=== PATIENT | male | born 1985 | race Caucasian/White ===

== ENCOUNTER 2018-02-15 18:37 | Emergency (ER) | payer OTHER ==
[2018-02-15] MEDS ORDERED: ACETAMINOPHEN TAB 325 MG TAB PO STA (19:09)
[2018-02-15] MEDS ORDERED: IBUPROFEN 600 MG TAB PO STA (19:09)
--- NOTE | 2018-02-15 19:14 | ED ---
Fever HPI - General Chief Complaint: Fever Stated Complaint: fever, chills Time Seen by Provider: 02/15/18 18:58 Source: patient, RN notes reviewed Mode of arrival: ambulatory Limitations: no limitations - History of Present Illness Initial Comments: This is a 32-year-old male who presents to the emergency department with chief complaint of fever. Patient states that on Monday he worked a 24-hour shift. He states that at the end of the shift he started to feel ill. He states that when he returned home yesterday he developed all over body aches. He states that he developed a fever and chills. He states he has been treating his fevers with Tylenol and Motrin. He states his last dose was at noon today. He also reports a pressure headache that worsens with bending forward. He denies any cough, runny nose, ear pain, sore throat, abdominal pain, nausea or vomiting , diarrhea or constipation. He denies any dysuria or hematuria. States that he is generally healthy and has had no sick contacts. Denies any recent travel. He states that a week and a half ago he was diagnosed with a dental abscess after having months of right maxillary sinus pain; he was treated with antibiotics and did follow-up with a dental specialist. He states that since that time the pain in his sinuses has improved. - Related Data Home Medications Medication Instructions Recorded Confirmed Acetaminophen [Tylenol] 650 mg PO Q6H PRN 02/15/18 02/15/18 Ibuprofen [Motrin Ib] 600 mg PO Q6H PRN 02/15/18 02/15/18 Allergies Allergy/AdvReac Type Severity Reaction Status Date / Time carbinoxamine [From Rondec] Allergy Unknown Verified 02/15/18 18:54 Childhood pseudoephedrine [From Rondec] Allergy Unknown Verified 02/15/18 18:54 Childhood Review of Systems ROS Statement: Those systems with pertinent positive or pertinent negative responses have been documented in the HPI. ROS Other: All systems not noted in ROS Statement are negative. Past Medical History Past Medical History: No Reported History History of Any Multi-Drug Resistant Organisms: None Reported Past Surgical History: No Surgical Hx Reported Past Psychological History: No Psychological Hx Reported Smoking Status: Current every day smoker Past Alcohol Use History: None Reported Past Drug Use History: None Reported General Exam - General Exam Comments Initial Comments: General: Awake and alert, well-developed; in no apparent distress. HEENT: Head atraumatic, normocephalic. Pupils are equal, round and reactive to light. Extraocular movements intact. Oropharynx moist without erythema or exudate. Bilateral TMs pearly without effusion. No tenderness on palpation of maxillary sinuses. Neck: Supple. Normal ROM. Cardiovascular: Regular rate and rhythm. No murmurs, rubs or gallops. Chest symmetrical. Respiratory: Lungs clear to auscultation bilaterally. No wheezes, rales or rhonchi. Normal respiratory effort with no use of accessory muscles. Musculoskeletal: Normal ROM, no tenderness bilateral upper and lower extremities. Ambulating normally. Skin: [place], warm and dry without rashes or lesions. Neurological: Alert and oriented x3. CN II-XII grossly intact. Speech is fluent and answers are appropriate. No focal neuro deficits. Psychiatric: Normal mood and affect. No overt signs of depression or anxiety noted. Limitations: no limitations Course Vital Signs 02/15/18 02/15/18 18:48 21:04 Temperature 100.9 F H 102.0 F H Pulse Rate 104 H 97 Respiratory 20 16 Rate Blood Pressure 139/67 130/72 O2 Sat by Pulse 99 98 Oximetry Medical Decision Making - Medical Decision Making This is a 32-year-old male who presents to emergency department with chief complaint of fever. Patient reports body aches, fever and a headache since yesterday. Has no other complaints. Denies cough, sore throat, ear pain, abdominal pain, nausea or vomiting. He states that he has been working long hours and feels rundown. Given ibuprofen and Tylenol here in the emergency department. Influenza swab was negative. Recommended rest and alternating Motrin and Tylenol to treat fevers. Recommended following up with primary care provider. Return parameters were discussed. Patient is in no acute distress and will be discharged home at this time. He is in agreement and voices understanding. All questions were answered. - Lab Data Lab Results 02/15/18 Range/Units 19:35 Influenza Type A RNA Not Detected (Not Detectd) Influenza Type B (PCR) Not Detected (Not Detectd) Disposition Clinical Impression: Fever Disposition: HOME SELF-CARE Condition: Good Instructions: Fever in Adults (ED) Additional Instructions: Please follow up with primary care provider within 1-2 days. Return to emergency department if symptoms should worsen or any concerns arise. Is patient prescribed a controlled substance at d/c from ED?: No Referrals: Sindy White MD [Primary Care Provider] - 1-2 days Time of Disposition: 20:45
[2018-02-15 21:06] VITALS: BP 130/72; PULSE 97; RESP 16; TEMP 102
== END 2018-02-15 21:05 | disposition home or self-care (01) ==
LOC: EC 18:37
DX: R50.9 Fever, unspecified (principal); R51 Headache; M79.1 Myalgia; F17.200 Nicotine dependence, unspecified, uncomplicated; Z88.8 Allergy status to other drugs, medicaments and biological substances
CPT/HCPCS: 87502; 99283

== ENCOUNTER 2018-02-16 17:52 | Inpatient (IN) | payer OTHER ==
[2018-02-16] MEDS ORDERED: SODIUM CHLORIDE 0.9% 1,000 ML IV STA (18:20)
[2018-02-16] MEDS ORDERED: ACETAMINOPHEN TAB 325 MG TAB PO STA (18:20)
--- NOTE | 2018-02-16 18:23 | ED ---
Fever HPI <Mateo Lyon - Last Filed: 02/16/18 19:50> - General Source: patient, RN notes reviewed Mode of arrival: ambulatory Limitations: no limitations <Christina Jaimes - Last Filed: 02/16/18 20:19> - General Chief Complaint: Fever Stated Complaint: sob, fever, dizziness Time Seen by Provider: 02/16/18 18:15 - History of Present Illness Initial Comments: This is a 32-year-old male who presents to the emergency department with chief complaint of fever. Patient was seen by myself yesterday in the emergency department with chief complaint of fever, headache and body aches. Fever was treated and influenza swab was negative. Patient was discharged home in stable condition. He states that he went to bed and slept all day. He states that sometime throughout the day he developed a cough, shortness of breath and dizziness. He has not eaten or drank anything throughout the day. He states that his urine is concentrated. He reports that a fever of 105 prior to arrival. He states that he took 600 mg of ibuprofen in 325 mg of Tylenol at 1700. He denies sore throat, ear pain, abdominal pain, nausea or vomiting, diarrhea or constipation. He does report continuation of body aches. (Christina Jaimes) - Related Data Home Medications Medication Instructions Recorded Confirmed Acetaminophen [Tylenol] 650 mg PO Q6H PRN 02/15/18 02/16/18 Ibuprofen [Motrin Ib] 600 mg PO Q6H PRN 02/15/18 02/16/18 Allergies Allergy/AdvReac Type Severity Reaction Status Date / Time carbinoxamine [From Rondec] Allergy Unknown Verified 02/16/18 18:41 Childhood pseudoephedrine [From Rondec] Allergy Unknown Verified 02/16/18 18:41 Childhood Review of Systems ROS Other: All systems not noted in ROS Statement are negative. <Mateo Lyon - Last Filed: 02/16/18 19:50> ROS Other: All systems not noted in ROS Statement are negative. <Christina Jaimes - Last Filed: 02/16/18 20:19> ROS Statement: Those systems with pertinent positive or pertinent negative responses have been documented in the HPI. Past Medical History Past Medical History: No Reported History History of Any Multi-Drug Resistant Organisms: None Reported Past Surgical History: No Surgical Hx Reported Past Psychological History: No Psychological Hx Reported Smoking Status: Current every day smoker Past Alcohol Use History: None Reported Past Drug Use History: None Reported <Christina Jaimes - Last Filed: 02/16/18 20:19> General Exam <Mateo Lyon - Last Filed: 02/16/18 19:50> Limitations: no limitations <Christina Jaimes - Last Filed: 02/16/18 20:19> - General Exam Comments Initial Comments: General: Awake and alert, well-developed; in no apparent distress. Patient is diaphoretic. Mother is at bedside. HEENT: Head atraumatic, normocephalic. Pupils are equal, round and reactive to light. Extraocular movements intact. Oropharynx moist without erythema or exudate. Neck: Supple. Normal ROM. Cardiovascular: Regular rate and rhythm. No murmurs, rubs or gallops. Chest symmetrical. Respiratory: Crackles left lung base. Diminished breath sounds right lung. Normal respiratory effort with no use of accessory muscles. Abdomen: Soft, non-tender, non-distended. No rigidity, rebound or guarding. Normal bowel sounds in all 4 quadrants. Musculoskeletal: Normal ROM, no tenderness bilateral upper and lower extremities. Skin: [place], warm and dry without rashes or lesions. Neurological: Alert and oriented x3. CN II-XII grossly intact. Speech is fluent and answers are appropriate. No focal neuro deficits. Psychiatric: Normal mood and affect. No overt signs of depression or anxiety noted. (Christina Jaimes) Course <Mateo Lyon - Last Filed: 02/16/18 19:50> <Christina Jaimes - Last Filed: 02/16/18 20:19> Vital Signs 02/16/18 18:11 Temperature 99.7 F H Pulse Rate 96 Respiratory 20 Rate Blood Pressure 108/58 O2 Sat by Pulse 96 Oximetry - Reevaluation(s) Reevaluation #1: 02/16/18 19:51 Patient reevaluated by myself, Dr. Lyon. Patient is resting comfortably in bed. Lungs with rhonchi. Patient and family are updated on results and plan. Case was discussed in detail with Dr. Levy, who will admit for Dr. White. I reviewed and agree with PA findings. This includes all diagnostic interpretations and treatment plan. I did review x-ray. (Mateo Lyon) At this time, patient meets sepsis criteria. Confirmation of infection on chest x-ray indicates bilateral pneumonia. Patient will be started on azithromycin and Rocephin. Blood cultures are pending. 02/16/18 19:36 (Christina Jaimes) Medical Decision Making - Lab Data Result diagrams: 02/16/18 18:26 02/16/18 18:26 <Mateo Lyon - Last Filed: 02/16/18 19:50> - Lab Data Result diagrams: 02/16/18 18:26 02/16/18 18:26 - Radiology Data Radiology results: report reviewed, image reviewed <Christina Jaimes - Last Filed: 02/16/18 20:19> - Medical Decision Making This is a 32-year-old male who presents to the emergency department with chief complaint of fever. Patient reports bodyaches, shortness of breath, dizziness and cough. He is diaphoretic and febrile on presentation. He is 96% on room air. CBC reveals a white count at 19.0 with a left shift at 16.6. Lactic acid is normal at 1.1. Chest x-ray shows evidence for bilateral pneumonia. Patient meets sepsis criteria. Started on Rocephin and azithromycin. Discussed admission with patient who is in agreement. Patient will be admitted to Dr. Acevedo. He is in no acute distress at this time. (Christina Jaimes) - Lab Data Lab Results 02/16/18 02/16/18 02/16/18 Range/Units 18:26 18:26 18:31 WBC 19.0 H (3.8-10.6) k/uL RBC 5.38 (4.30-5.90) m/uL Hgb 15.5 (13.0-17.5) gm/dL Hct 47.2 (39.0-53.0) % MCV 87.7 (80.0-100.0) fL MCH 28.7 (25.0-35.0) pg MCHC 32.8 (31.0-37.0) g/dL RDW 13.3 (11.5-15.5) % Plt Count 152 (150-450) k/uL Neutrophils % 87 % Lymphocytes % 6 % Monocytes % 5 % Eosinophils % 0 % Basophils % 0 % Neutrophils # 16.6 H (1.3-7.7) k/uL Lymphocytes # 1.2 (1.0-4.8) k/uL Monocytes # 1.0 (0-1.0) k/uL Eosinophils # 0.1 (0-0.7) k/uL Basophils # 0.0 (0-0.2) k/uL Sodium 134 L (137-145) mmol/L Potassium 3.6 (3.5-5.1) mmol/L Chloride 103 (98-107) mmol/L Carbon Dioxide 20 L (22-30) mmol/L Anion Gap 11 mmol/L BUN 12 (9-20) mg/dL Creatinine 1.09 (0.66-1.25) mg/dL Est GFR (CKD-EPI)AfAm >90 (>60 ml/min/1.73 sqM) Est GFR (CKD-EPI)NonAf >90 (>60 ml/min/1.73 sqM) Glucose 129 H (74-99) mg/dL Plasma Lactic Acid Andrei 1.1 (0.7-2.0) mmol/L Calcium 8.8 (8.4-10.2) mg/dL Total Bilirubin 1.5 H (0.2-1.3) mg/dL AST 31 (17-59) U/L ALT 33 (21-72) U/L Alkaline Phosphatase 78 (38-126) U/L Total Protein 6.1 L (6.3-8.2) g/dL Albumin 3.7 (3.5-5.0) g/dL Urine Color Urine Appearance (Clear) Urine pH (5.0-8.0) Ur Specific [place] (1.001-1.035) Urine Protein (Negative) Urine Glucose (UA) (Negative) Urine Ketones (Negative) Urine Blood (Negative) Urine Nitrite (Negative) Urine Bilirubin (Negative) Urine Urobilinogen (<2.0) mg/dL Ur Leukocyte Esterase (Negative) Urine RBC (0-5) /hpf Urine WBC (0-5) /hpf Ur Squamous Epith Cells (0-4) /hpf Urine Mucus (None) /hpf 02/16/18 Range/Units 19:10 WBC (3.8-10.6) k/uL RBC (4.30-5.90) m/uL Hgb (13.0-17.5) gm/dL Hct (39.0-53.0) % MCV (80.0-100.0) fL MCH (25.0-35.0) pg MCHC (31.0-37.0) g/dL RDW (11.5-15.5) % Plt Count (150-450) k/uL Neutrophils % % Lymphocytes % % Monocytes % % Eosinophils % % Basophils % % Neutrophils # (1.3-7.7) k/uL Lymphocytes # (1.0-4.8) k/uL Monocytes # (0-1.0) k/uL Eosinophils # (0-0.7) k/uL Basophils # (0-0.2) k/uL Sodium (137-145) mmol/L Potassium (3.5-5.1) mmol/L Chloride (98-107) mmol/L Carbon Dioxide (22-30) mmol/L Anion Gap mmol/L BUN (9-20) mg/dL Creatinine (0.66-1.25) mg/dL Est GFR (CKD-EPI)AfAm (>60 ml/min/1.73 sqM) Est GFR (CKD-EPI)NonAf (>60 ml/min/1.73 sqM) Glucose (74-99) mg/dL Plasma Lactic Acid Andrei (0.7-2.0) mmol/L Calcium (8.4-10.2) mg/dL Total Bilirubin (0.2-1.3) mg/dL AST (17-59) U/L ALT (21-72) U/L Alkaline Phosphatase (38-126) U/L Total Protein (6.3-8.2) g/dL Albumin (3.5-5.0) g/dL Urine Color Yellow Urine Appearance Clear (Clear) Urine pH 6.0 (5.0-8.0) Ur Specific [place] 1.022 (1.001-1.035) Urine Protein 1+ H (Negative) Urine Glucose (UA) Negative (Negative) Urine Ketones Trace H (Negative) Urine Blood Small H (Negative) Urine Nitrite Negative (Negative) Urine Bilirubin 1+ H (Negative) Urine Urobilinogen 2.0 (<2.0) mg/dL Ur Leukocyte Esterase Negative (Negative) Urine RBC 8 H (0-5) /hpf Urine WBC 3 (0-5) /hpf Ur Squamous Epith Cells <1 (0-4) /hpf Urine Mucus Moderate H (None) /hpf - Radiology Data Chest x-ray findings: There is 10 cm area of consolidation adjacent to the pleura in the lateral right upper lobe. There is a 2 cm linear infiltrate in the left lower lobe. There is no heart failure. Heart size is normal. Bony thorax is intact. Impression: Bilateral pneumonia. No heart failure. (Christina Jaimes) Disposition <Mateo Lyon - Last Filed: 02/16/18 19:50> Is patient prescribed a controlled substance at d/c from ED?: No Time of Disposition: 19:44 <Christina Jaimes - Last Filed: 02/16/18 20:19> Clinical Impression: Bilateral pneumonia, Fever, Sepsis Disposition: ADMITTED IP TO THIS HOSP Condition: Good Referrals: Sindy White MD [Primary Care Provider] - 1-2 days
[2018-02-16 19:11] LABS: Basophils % (A) 0 %; Eosinophils # (A) 0.1 k/uL (0-0.7); Eosinophils % (A) 0 %; HCT 47.2 % (39.0-53.0); HGB 15.5 gm/dL (13.0-17.5); Lymphocytes # (A) 1.2 k/uL (1.0-4.8); Lymphocytes % (A) 6 %; MCH 28.7 pg (25.0-35.0); MCHC 32.8 g/dL (31.0-37.0); MCV 87.7 fL (80.0-100.0); Mean Platelet Volume 8.8; Monocytes % (A) 5 %; Neutrophils # (A) 16.6 k/uL (1.3-7.7); Neutrophils % (A) 87 %; Platelet Count 152 k/uL (150-450); RBC 5.38 m/uL (4.30-5.90); RDW 13.3 % (11.5-15.5)
[2018-02-16 19:21] LABS: ALT 33 U/L (21-72); AST 31 U/L (17-59); Albumin 3.7 g/dL (3.5-5.0); Alkaline Phosphatase 78 U/L (38-126); Anion Gap 11 mmol/L; Blood Urea Nitrogen 12 mg/dL (9-20); Calcium 8.8 mg/dL (8.4-10.2); Carbon Dioxide 20 mmol/L (22-30); Chloride 103 mmol/L (98-107); Glucose 129 mg/dL (74-99); Potassium 3.6 mmol/L (3.5-5.1); Sodium 134 mmol/L (137-145); Total Bilirubin 1.5 mg/dL (0.2-1.3); Total Protein 6.1 g/dL (6.3-8.2)
--- NOTE | 2018-02-16 19:31 | XR ---
EXAMINATION TYPE: XR chest 2V DATE OF EXAM: 02/16/2018 COMPARISON: NONE HISTORY: Cough and fever TECHNIQUE: Frontal and lateral views of the chest are obtained. FINDINGS: There is 10 cm area of consolidation adjacent to the pleura in the lateral right upper lob e. There is a 2 cm linear infiltrate in the left lower lobe. There is no heart failure. Heart size is normal. Bony thorax is intact. IMPRESSION: Bilateral pneumonia. No heart failure.
[2018-02-16 19:36] LABS: Appearance,Urine Clear (Clear); Bilirubin,Urine 1+ (Negative); Blood,Urine Small (Negative); Color,Urine Yellow; Glucose,Urine (UA) Negative (Negative); Ketones,Urine Trace (Negative); Leukocyte Esterase,Urine Negative (Negative); Mucus,Urine Moderate /hpf; Nitrite,Urine Negative (Negative); Protein,Urine 1+ (Negative); RBC,Urine 8 /hpf (0-5); Specific Gravity,Urine 1.022 (1.001-1.035); Squamous Epithelial Cell,Urine <1 /hpf (0-4); WBC,Urine 3 /hpf (0-5)
[2018-02-16] MEDS ORDERED: methylPREDNISolone SOD SUCCI 125 MG/2 ML VIAL IV STA (19:37)
[2018-02-16] MEDS ORDERED: PNEUMONIA PROTOCOL UTILIZED 1 EACH MISC PO PRN (19:37)
[2018-02-16] MEDS: SODIUM CHLORIDE 0.9% 1,000 ML IV SCH (21:28)
[2018-02-16] MEDS: AZITHROMYCIN 500 MG TAB PO SCH (21:29)
[2018-02-16] MEDS: IBUPROFEN 600 MG TAB PO PRN (21:36)
[2018-02-17 06:27] LABS: Glucose,Whole Blood 125 mg/dL (75-99)
[2018-02-17] MEDS: SODIUM CHLORIDE 0.9% 1,000 ML IV SCH (06:54)
--- NOTE | 2018-02-17 10:58 | P.HPIM ---
History of Present Illness H&P Date: 02/17/18 32 years old male patient of Dr. White with with past medical history of asthma comes in with fever, chills, body aches, shortness of breath that started 3 days ago. Patient was in the ER 2 days back with fever and body ache was checked for influenza which was negative and was sent home. Patient came back yesterday with a fever of 105 and increased shortness of breath. Chest x-ray obtained in the ER suggest consolidation of 10 cm in the right upper lobe, leaning infiltrate in the left lower lobe some consolidation seen in the right middle lobe as well. Vital obtained in the ER suggested temp of 96.8, blood pressure 97/59, saturating well on room air. Assessment bedside patient was sweating profusely. Denies any cough he does complain of shortness of breath and body aches. Denies any neck stiffness, no seizures no tremors, denies any abdominal pain but does complain of one episode of diarrhea. He denies any phlegm production. Patient did have a dental abscess that was treated with a root canal 2 weeks ago. He was treated for maxillary sinus infection for multiple months prior to that. Patient feels a sinus infection has cleared off. He denies any recent travel or sick contact he does have 2 young children at home are doing well with no sign of infection. Absolute didn't suggest a leukocytosis of 19, sodium of 134, CO2 20, glucose 129 increased bilirubin with normal LFTs is obtained which suggest some ketones.. No sign of infection. Later will be treated for community-acquired pneumonia with azithromycin and ceftriaxone. Lactic acid was normal Review of Systems Constitutional: Endorses chills, fever, lethargic, poor appetite Denies weight loss Eyes: denies decreased vision, denies diplopia, denies discharge, denies pain Ears: deny: decreased hearing Ears, nose, mouth and throat: Denies dental pain, Denies headache, Denies nasal discharge, Denies nose pain Cardiovascular: Denies chest pain, Denies decreased exercise tolerance, Denies edema, Denies high blood pressure, Denies irregular heart beat, Denies palpitations, Denies paroxysmal nocturnal dyspnea, Denies rapid heart beat, endorses shortness of breath Respiratory: Denies congestion, Denies cough, Denies cough with sputum, endorses dyspnea, Denies home oxygen, Denies wheezing Gastrointestinal: Denies abdominal pain, Denies change in bowel habits, Denies coffee ground emesis, Denies early satiety, Denies excessive gas, Denies heartburn, Denies hematemesis, Denies hematochezia, Denies loss of appetite, Denies nausea, Denies vomiting Genitourinary: Denies dysuria, Denies flank pain, Denies kidney stones, Denies menorrhagia, Denies urgency, Denies urinary frequency Musculoskeletal: Denies gait dysfunction, Denies limitation of motion, Denies morning stiffness, Denies muscle cramps Integumentary: Denies rash, Denies wounds, Denies brittle nails, Denies change in hair/nails, Denies darkening of skin Neurological: Denies balance difficulties, Denies change in speech, Denies double vision, Denies gait dysfunction, Denies loss of vision, Denies motor disturbance, Denies numbness, Denies paralysis, Denies paresthesias, Denies seizures Psychiatric: Denies anxiety, Denies depression Endocrine: Denies excessive sweating, Denies excessive thirst, Denies high blood sugars, Denies palpitations Hematologic/Lymphatic: Denies easy bruising, Denies lymphadenopathy Past Medical History Past Medical History: Asthma, Pneumonia Additional Past Medical History / Comment(s): asthma as child, upper bridge History of Any Multi-Drug Resistant Organisms: None Reported Past Surgical History: Tonsillectomy Past Anesthesia/Blood Transfusion Reactions: No Reported Reaction Smoking Status: Current every day smoker (Smokes one pack a day for 10 years) - Past Family History Mother Additional Family Medical History / Comment(s): brain aneurysm Father Family Medical History: No Reported History Medications and Allergies Home Medications Medication Instructions Recorded Confirmed Type Acetaminophen [Tylenol] 650 mg PO Q6H PRN 02/15/18 02/16/18 History Ibuprofen [Motrin Ib] 600 mg PO Q6H PRN 02/15/18 02/16/18 History Allergies Allergy/AdvReac Type Severity Reaction Status Date / Time carbinoxamine [From Ronde] Allergy Unknown Verified 02/16/18 18:41 Childhood pseudoephedrine [From Ronde] Allergy Unknown Verified 02/16/18 18:41 Childhood Physical Exam Vitals: Vital Signs Temp Pulse Pulse Resp BP BP Pulse Ox 02/17/18 07:28 97.4 F L 02/17/18 06:29 96.9 F L 71 18 121/76 93 L 02/16/18 23:06 96.8 F L 77 18 97/59 92 L 02/16/18 21:04 98.4 F 84 18 111/68 95 02/16/18 20:25 98.4 F 80 16 111/58 95 02/16/18 18:11 99.7 F H 96 20 108/58 96 Intake and Output 02/16/18 02/17/18 02/17/18 22:59 06:59 14:59 Other: # Voids 2 Weight 120.202 kg - Constitutional General appearance: cooperative, no acute distress, obese - EENT Eyes: anicteric sclerae, PERRLA, normal appearance ENT: hearing grossly normal - Neck Neck: no lymphadenopathy, normal ROM, no other, no rigidity, no stridor, no thyromegaly - Respiratory Respiratory: bilateral decreased air entry with rhonchi heard on the left lower base and right upper lobe. Crackles heard on the right lower base - Cardiovascular Rhythm: regular Heart sounds: normal: S1, S2 Abnormal Heart Sounds: no systolic murmur, no diastolic murmur, no rub, no S3 Gallop, no S4 Gallop - Gastrointestinal General gastrointestinal: normal bowel sounds, soft - Integumentary Integumentary: no rash - Neurologic Neurologic: CNII-XII intact - Musculoskeletal Musculoskeletal: gait normal, strength equal bilaterally - Psychiatric Psychiatric: A&O x's 3, appropriate affect Results CBC & Chem 7: 02/16/18 18:26 02/16/18 18:26 Labs: Abnormal Lab Results - Last 24 Hours (Table) 02/16/18 02/16/18 02/16/18 Range/Units 18:26 18:26 19:10 WBC 19.0 H (3.8-10.6) k/uL Neutrophils # 16.6 H (1.3-7.7) k/uL Sodium 134 L (137-145) mmol/L Carbon Dioxide 20 L (22-30) mmol/L Glucose 129 H (74-99) mg/dL POC Glucose (mg/dL) (75-99) mg/dL Total Bilirubin 1.5 H (0.2-1.3) mg/dL Total Protein 6.1 L (6.3-8.2) g/dL Urine Protein 1+ H (Negative) Urine Ketones Trace H (Negative) Urine Blood Small H (Negative) Urine Bilirubin 1+ H (Negative) Urine RBC 8 H (0-5) /hpf Urine Mucus Moderate H (None) /hpf 02/17/18 Range/Units 06:26 WBC (3.8-10.6) k/uL Neutrophils # (1.3-7.7) k/uL Sodium (137-145) mmol/L Carbon Dioxide (22-30) mmol/L Glucose (74-99) mg/dL POC Glucose (mg/dL) 125 H (75-99) mg/dL Total Bilirubin (0.2-1.3) mg/dL Total Protein (6.3-8.2) g/dL Urine Protein (Negative) Urine Ketones (Negative) Urine Blood (Negative) Urine Bilirubin (Negative) Urine RBC (0-5) /hpf Urine Mucus (None) /hpf Thrombosis Risk Factor Assmnt - DVT/VTE Prophylaxis DVT/VTE Prophylaxis: Mechanical Prophylaxis ordered - Choose All That Apply Any of the Below Risk Factors Present?: No Other Risk Factors: No Other congenital or acquired thrombophilia - If yes, enter type in comment: No Thrombosis Risk Factor Assessment Level: Very Low Risk Assessment and Plan Plan: #1 acute sepsis secondary to community-acquired pneumonia. Lactic acid normal. Antibiotic ceftriaxone and azithromycin. Hold IV fluids as patient is able to keep up with oral intake. Blood cultures ordered. Sputum culture ordered. Legionella urinary antigen and mycoplasma ordered. Likely anaerobic/gram- positive bacteria etiology stop patient's chest x-ray concerning for 10 cm consolidation may need repeat imaging in 6 weeks as outpatient. If no improvement in symptoms. Tomorrow we will evaluate further with a CT chest. #2 hyperglycemia HbA1c ordered. Insulin sliding scale glucose checked before meals and at bedtime #3 history of asthma continue albuterol as needed for shortness of breath. #4 DVT prophylaxis with SCDs #5 Code status full code
[2018-02-17 18:16] LABS: Hemoglobin A1C 5.2 % (4.0-6.0)
[2018-02-17] MEDS: ACETAMINOPHEN TAB 325 MG TAB PO PRN (20:17)
[2018-02-17] MEDS: NICOTINE 21MG/24HR PATCH TRANSDERM SCH (20:38)
[2018-02-17] MEDS: AZITHROMYCIN 500 MG TAB PO SCH (20:38)
[2018-02-17] MEDS: IPRATROPIUM-ALBUTEROL 3 ML NEB INHALATION PRN (21:35)
[2018-02-18] MEDS: IBUPROFEN 600 MG TAB PO PRN ×4 (01:18→23:16)
[2018-02-18] MEDS: DIPHENOX-ATROP 2.5-0.025 MG 1 EACH TAB PO PRN ×3 (02:34→20:10)
[2018-02-18] MEDS: MELATONIN 3 MG TABLET PO SCH ×2 (03:15→20:10)
[2018-02-18] MEDS: IPRATROPIUM-ALBUTEROL 3 ML NEB INHALATION PRN ×5 (07:46→23:46)
[2018-02-18 08:06] LABS: Basophils % (A) 0 %; Eosinophils # (A) 0.1 k/uL (0-0.7); Eosinophils % (A) 0 %; HCT 46.7 % (39.0-53.0); HGB 15.1 gm/dL (13.0-17.5); Lymphocytes # (A) 1.2 k/uL (1.0-4.8); Lymphocytes % (A) 5 %; MCH 28.1 pg (25.0-35.0); MCHC 32.4 g/dL (31.0-37.0); MCV 86.9 fL (80.0-100.0); Mean Platelet Volume 9.9; Monocytes % (A) 5 %; Neutrophils # (A) 19.4 k/uL (1.3-7.7); Neutrophils % (A) 89 %; Platelet Count 173 k/uL (150-450); RBC 5.38 m/uL (4.30-5.90); RDW 13.7 % (11.5-15.5); WBC 21.8 k/uL (3.8-10.6)
[2018-02-18 08:17] LABS: ALT 32 U/L (21-72); AST 18 U/L (17-59); Albumin 3.5 g/dL (3.5-5.0); Alkaline Phosphatase 85 U/L (38-126); Anion Gap 9 mmol/L; Calcium 8.6 mg/dL (8.4-10.2); Carbon Dioxide 26 mmol/L (22-30); Chloride 105 mmol/L (98-107); Glucose 102 mg/dL (74-99); Potassium 4.2 mmol/L (3.5-5.1); Sodium 140 mmol/L (137-145); Total Bilirubin 0.8 mg/dL (0.2-1.3); Total Protein 5.9 g/dL (6.3-8.2)
[2018-02-18 08:18] LABS: Blood Urea Nitrogen 14 mg/dL (9-20)
[2018-02-18] MEDS: NICOTINE 21MG/24HR PATCH TRANSDERM SCH (08:21)
[2018-02-18] MEDS: ACETAMINOPHEN TAB 325 MG TAB PO PRN ×3 (09:55→20:10)
[2018-02-18] MEDS ORDERED: VANCOMYCIN IV PER PHARMACY 1 EACH MISC MISCELLANE PRN (10:34)
[2018-02-18] MEDS ORDERED: VANCOMYCIN 1,500 MG in SODIUM CHLORIDE 0.9% 250 ML IVPB SCH (10:45)
--- NOTE | 2018-02-18 11:09 | CT ---
EXAMINATION TYPE: CT chest wo con DATE OF EXAM: 02/18/2018 COMPARISON: None. HISTORY: Pneumonia CT DLP: 461.90 mGycm. Automated Exposure Control for Dose Reduction was Utilized. TECHNIQUE: CT scan of the thorax is performed without IV contrast. FINDINGS: There is dense consolidation in the superior segment of the right upper lobe. There is patc hy consolidation in the left upper lobe. The lower lobes are relatively free of disease. There is some mild mediastinal adenopathy with the largest lymph node measuring approximately 1.6 cm. This is likely compensatory. There is a scant amount of pleural fluid present bilaterally. There is a tiny amount of pericardial fluid anteriorly measuring approximately 5 mm in thickness. The heart is not enlarged. Visualized portions of the upper abdomen are unremarkable. No bony lesion is seen.. IMPRESSION: 1. BILATERAL PNEUMONIA, WORSE ON THE RIGHT THAN THE LEFT. 2. TINY PLEURAL OR PERICARDIAL EFFUSIONS. 3. MEDIASTINAL ADENOPATHY, LIKELY COMPENSATORY
[2018-02-18] MEDS: PIPERACILLIN-TAZOBACTAM 3.375 GM in DEXTROSE/WATER 1 50ML.BAG IVPB SCH ×3 (12:07→23:49)
[2018-02-18] MEDS: VANCOMYCIN 2,250 MG in SODIUM CHLORIDE 0.9% 500 ML IVPB SCH ×2 (12:25→20:04)
--- NOTE | 2018-02-18 12:55 | P.PN ---
<StormmyriamHarsha richeyCarly M - Last Filed: 02/18/18 13:15> Subjective 32 years old male patient of Dr. White with with past medical history of asthma comes in with fever, chills, body aches, shortness of breath that started 3 days ago. Patient was in the ER 2 days back with fever and body ache was checked for influenza which was negative and was sent home. Patient came back yesterday with a fever of 105 and increased shortness of breath. Chest x-ray obtained in the ER suggest consolidation of 10 cm in the right upper lobe, leaning infiltrate in the left lower lobe some consolidation seen in the right middle lobe as well. Vital obtained in the ER suggested temp of 96.8, blood pressure 97/59, saturating well on room air. Assessment bedside patient was sweating profusely. Denies any cough he does complain of shortness of breath and body aches. Denies any neck stiffness, no seizures no tremors, denies any abdominal pain but does complain of one episode of diarrhea. He denies any phlegm production. Patient did have a dental abscess that was treated with a root canal 2 weeks ago. He was treated for maxillary sinus infection for multiple months prior to that. Patient feels a sinus infection has cleared off. He denies any recent travel or sick contact he does have 2 young children at home are doing well with no sign of infection. Absolute didn't suggest a leukocytosis of 19, sodium of 134, CO2 20, glucose 129 increased bilirubin with normal LFTs is obtained which suggest some ketones.. No sign of infection. Later will be treated for community-acquired pneumonia with azithromycin and ceftriaxone. Lactic acid was normal 02/18: Patient had multiple episodes of diarrhea throughout the night. A stool culture for C. diff was obtained. Denies any nausea vomiting or abdominal pain. Continues to have chills, fever, body aches, and shortness of breath. Patient states has a dry cough and not coughing up any sputum. Patient states that he is not feeling any better today. White count continues to increase 21.8 today, Lactic acid was redrawn 2.8, fluids 0.9 normal saline at 100 mL per hour. Objective - Vital Signs Vital signs: Vital Signs Temp 100.7 F H 02/18/18 11:54 Pulse 108 H 02/18/18 11:55 Resp 18 02/18/18 06:22 BP 132/77 02/18/18 06:22 Pulse Ox 96 02/18/18 06:22 Intake & Output 02/17/18 02/18/18 02/18/18 18:59 06:59 18:59 Intake Total 1200 Balance 1200 Intake: Oral 1200 Other: # Voids 2 2 # Bowel Movements 2 - Constitutional General appearance: Present: cooperative, mild distress, obese - EENT Eyes: Present: anicteric sclerae, EOMI, PERRLA, normal appearance. Absent: photophobia ENT: Present: hearing grossly normal - Neck Neck: Present: normal ROM. Absent: lymphadenopathy, rigidity, stridor, thyromegaly - Respiratory Details: Bilateral decreased air entry with rhonchi heard on the left lower base and right upper lobe. Crackles heard on the right lower base. - Cardiovascular Rhythm: regular Heart sounds: normal: S1, S2 Abnormal Heart Sounds: Absent: systolic murmur, diastolic murmur, rub, S3 Gallop , S4 Gallop, click, other - Gastrointestinal General gastrointestinal: Present: normal bowel sounds, soft. Absent: tenderness - Integumentary Integumentary Comment(s): Diaphoretic Integumentary: Present: pale. Absent: rash - Neurologic Neurologic: Present: CNII-XII intact - Musculoskeletal Musculoskeletal: Present: gait normal, strength equal bilaterally - Psychiatric Psychiatric: Present: A&O x's 3, appropriate affect, intact judgment & insight - Labs CBC & Chem 7: 02/18/18 07:09 02/18/18 07:09 Labs: Abnormal Lab Results - Last 24 Hours (Table) 02/18/18 02/18/18 02/18/18 Range/Units 07:09 07:09 08:39 WBC 21.8 H (3.8-10.6) k/uL Neutrophils # 19.4 H (1.3-7.7) k/uL Glucose 102 H (74-99) mg/dL Plasma Lactic Acid Andrei 2.8 H* (0.7-2.0) mmol/L Total Protein 5.9 L (6.3-8.2) g/dL Microbiology - Last 24 Hours (Table) 02/16/18 18:26 Blood Culture - Preliminary Blood No Growth after 24 hours Assessment and Plan Plan: 1. acute sepsis secondary to community-acquired pneumonia. Lactic acid elevated. Continue azithromycin and discontinue ceftriaxone, start vancomycin pharmacy to dose and Zosyn. Continue IV fluids at 100 mL per hour. Blood cultures ordered. Stool cultures and WBCs ordered. CT of the chest ordered - findings show bilateral pneumonia worse on right than left, tiny pleural or pericardial effusion, mediastinal adenopathy, likely compensatory. Consult to infectious disease. If no improvement in 24 hours with changes to antibiotics will consult raymond mill operator for possible bronchoscopy. 2. hyperglycemia, HbA1c 5.2, 3. history of asthma continue albuterol as needed for shortness of breath. 4. Pleural or pericardial effusion, echocardiogram ordered. 5. DVT prophylaxis with SCDs 6. Code status full code <Aleida Acevedo - Last Filed: 02/18/18 22:49> Objective - Vital Signs Vital signs: Vital Signs Temp 100.1 F H 02/18/18 21:20 Pulse 110 H 02/18/18 20:31 Resp 18 02/18/18 15:28 BP 100/58 02/18/18 15:00 Pulse Ox 96 02/18/18 15:00 Intake & Output 02/18/18 02/18/18 02/19/18 06:59 18:59 06:59 Other: # Voids 2 3 # Bowel Movements 2 1 - Labs CBC & Chem 7: 02/18/18 07:09 02/18/18 17:45 Labs: Abnormal Lab Results - Last 24 Hours (Table) 02/18/18 02/18/18 02/18/18 Range/Units 07:09 07:09 08:39 WBC 21.8 H (3.8-10.6) k/uL Neutrophils # 19.4 H (1.3-7.7) k/uL Potassium (3.5-5.1) mmol/L Glucose 102 H (74-99) mg/dL Plasma Lactic Acid Andrei 2.8 H* (0.7-2.0) mmol/L Calcium (8.4-10.2) mg/dL Total Protein 5.9 L (6.3-8.2) g/dL 02/18/18 Range/Units 17:45 WBC (3.8-10.6) k/uL Neutrophils # (1.3-7.7) k/uL Potassium 3.3 L (3.5-5.1) mmol/L Glucose 122 H (74-99) mg/dL Plasma Lactic Acid Andrei (0.7-2.0) mmol/L Calcium 8.2 L (8.4-10.2) mg/dL Total Protein (6.3-8.2) g/dL Microbiology - Last 24 Hours (Table) 02/16/18 18:26 Blood Culture - Preliminary Blood No Growth after 48 hours 02/18/18 13:30 Stool Culture - Preliminary Stool Assessment and Plan Plan: legionella is pending since admission. azithromycin continued to cover legionella.
[2018-02-18] MEDS ORDERED: LEVOFLOXACIN 750MG-D5W PMX 750 MG in DEXTROSE/WATER 1 150ML.BAG IVPB STA (17:02)
[2018-02-18 18:07] LABS: Anion Gap 9 mmol/L; Blood Urea Nitrogen 10 mg/dL (9-20); Calcium 8.2 mg/dL (8.4-10.2); Carbon Dioxide 23 mmol/L (22-30); Chloride 106 mmol/L (98-107); Glucose 122 mg/dL (74-99); Potassium 3.3 mmol/L (3.5-5.1); Sodium 138 mmol/L (137-145)
[2018-02-18] MEDS ORDERED: Potassium Replacement Protocol 1 EACH MISC MISCELLANE PRN (19:11)
[2018-02-18] MEDS: POTASSIUM CHLORIDE ER 20 MEQ TAB.ER PO SCH ×2 (20:05→21:14)
--- NOTE | 2018-02-18 21:53 | CONS ---
CONSULTATION DATE OF SERVICE: 02/18/2018. REASON FOR CONSULTATION: Pneumonia and antibiotic recommendation. HISTORY OF PRESENT ILLNESS: The patient is a 32-year-old male presenting to the ER at [facility] on 02/16/2018 with chief complaints of fever, shortness of breath, and dizziness. His symptoms have been going on for about 2 days before he presented to the Hospital for the 2nd time. He has fever with rigors and chills with generalized body aches. The patient did have a cough. However, it is mostly dry in nature. The patient denies having any nausea or vomiting. Did start having diarrhea 2 to 3 stools per day with no blood or mucus in it. No significant crampy abdominal pain though. The patient was initially evaluated at the [facility] ER on 02/15/2018. At that time, the patient did have a flu test which was negative. Diagnosed with possible viral syndrome, on no antibiotics. Subsequently presented within 24 hours with similar worsen symptoms. At this time the patient did have a CBC with a white count of 19,000. Repeat today is 21.8 with lactic acid of 2.8. Electrolytes have been normal. The patient did have blood cultures obtained which are currently pending. has been requested, which is currently pending. The patient was initially on Rocephin and Zithromax subsequently has been transitioned to the Zosyn and vancomycin today. Infectious Disease was consulted for further recommendation regarding antibiotic therapy. REVIEW OF SYSTEMS: CONSTITUTIONAL: Positive for weakness. Generalized body aches and fever as mentioned earlier. Eyes no complaint. ENT as per HPI. RESPIRATORY: As per HPI. CARDIOVASCULAR: No complaint. Genitourinary no complaint. Gastrointestinal: As per HPI. Musculoskeletal: No complaint. INTEGUMENTARY: No complaint. PSYCHOLOGICAL: No complaint. ENDOCRINE: No complaint. Neurologic no complaint. PAST MEDICAL HISTORY: Significant for asthma and pneumonia. PAST SURGICAL HISTORY: Tonsillectomy. SOCIAL HISTORY: The patient is currently an every day smoker. Smokes about 2 packs per day for the last ten years. He is . 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 FAMILY HISTORY: Mother history of brain aneurysm. Father no reported history. ALLERGIES: . MEDICATIONS: Currently include the patient is on: 1. Tylenol. 2. DuoNeb. 3. Lomotil. 4. Motrin. 5. Melatonin. 6. Nicotine patch. 7. Zosyn. 8. Vancomycin. EXAMINATION: Blood pressure 150/80, with a pulse of 93, temperature 99.7, he is 92% on room air. General description is a middle-aged male lying in bed in no distress. No tachypnea or accessory muscle of respiration use. HEENT: No pallor or scleral icterus. Oral mucosa membranes moist. Neck trachea central. No thyromegaly. LUNGS: Unlabored breathing. Some decreased breath sounds at the bases. No wheeze or crackles. Heart S1, S2. Regular rate and rhythm. ABDOMEN: Soft. No tenderness. No guarding. No rigidity. No organomegaly. Extremities: No edema of the feet. Skin examination: No rash or mass palpable. Neurologic: The patient is awake, alert, oriented times three. Mood and affect normal. LABS: BUN of 10, creatinine 0.7, potassium 4.2, lactate is 2.8. Liver enzymes have been normal. Hemoglobin is 15.9, white count 21.8. Stool for C difficile has been negative. Blood cultures negative. Sputum has been negative so far. DIAGNOSTIC IMPRESSION AND PLAN: Patient admitted to the hospital with sepsis and patient did have a fever of 102.8 degrees Fahrenheit. The patient did have tachycardia, elevated white count meeting criteria for SIRS. Source is likely pneumonia in view of this elevated fever and multifocal infiltrate, concern is likely for possible Legionella to be on the top of the list and more likely community-acquired pneumonia, less likely resistant gram- positive and gram-negative infection. PLAN: 1. We will try to obtain sputum for Gram stain culture and sensitivity. 2. Urine for Legionella antigen. 3. We will add the Levaquin 750 daily. 4. Continue with Zosyn. Vancomycin has been started today while watching his kidney function closely. 5. We will follow up on clinical condition and culture to further adjust medication if needed. Thank you for this consultation. Will follow this patient along with you. MMODL / IJN: [id number] /
[2018-02-19 00:03] LABS: Basophils % (A) 0 %; Eosinophils # (A) 0.1 k/uL (0-0.7); Eosinophils % (A) 1 %; HCT 43.8 % (39.0-53.0); HGB 14.3 gm/dL (13.0-17.5); Lymphocytes # (A) 1.2 k/uL (1.0-4.8); Lymphocytes % (A) 6 %; MCH 28.1 pg (25.0-35.0); MCHC 32.7 g/dL (31.0-37.0); MCV 85.9 fL (80.0-100.0); Mean Platelet Volume 8.3; Monocytes # (A) 0.8 k/uL (0-1.0); Monocytes % (A) 4 %; Neutrophils # (A) 16.1 k/uL (1.3-7.7); Neutrophils % (A) 88 %; Platelet Count 184 k/uL (150-450); RBC 5.09 m/uL (4.30-5.90); RDW 13.9 % (11.5-15.5); WBC 18.3 k/uL (3.8-10.6)
[2018-02-19 00:39] LABS: ALT 29 U/L (21-72); AST 17 U/L (17-59); Alkaline Phosphatase 75 U/L (38-126); Anion Gap 12 mmol/L; Blood Urea Nitrogen 8 mg/dL (9-20); Calcium 8.1 mg/dL (8.4-10.2); Carbon Dioxide 20 mmol/L (22-30); Chloride 105 mmol/L (98-107); Glucose 127 mg/dL (74-99); Potassium 3.5 mmol/L (3.5-5.1); Sodium 137 mmol/L (137-145); Total Bilirubin 0.8 mg/dL (0.2-1.3); Total Protein 5.3 g/dL (6.3-8.2)
[2018-02-19] MEDS ORDERED: IPRATROPIUM-ALBUTEROL 3 ML NEB INHALATION STA (01:21)
[2018-02-19 01:29] VITALS: BP 115/66; RESP 20; TEMP 99.3
[2018-02-19 01:47] VITALS: PULSE 111
[2018-02-19] MEDS ORDERED: LEVOFLOXACIN 750 MG TAB PO SCH (09:00)
--- NOTE | 2018-02-19 17:14 | P.DS ---
Providers Date of admission: 02/16/18 19:53 Attending physician: Sindy White Consults: 02/18/18 11:54 Consult Physician Routine Consulting Provider: Ralph Washburn Consult Reason/Comments: CAP Do you want consulting provider notified?: Yes Primary care physician: Sindy White [facility] Course: 32 years old male patient of Dr. White with with past medical history of asthma comes in with fever, chills, body aches, shortness of breath that started 3 days ago. Patient was in the ER 2 days back with fever and body ache was checked for influenza which was negative and was sent home. Patient came back yesterday with a fever of 105 and increased shortness of breath. Chest x-ray obtained in the ER suggest consolidation of 10 cm in the right upper lobe, leaning infiltrate in the left lower lobe some consolidation seen in the right middle lobe as well. Vital obtained in the ER suggested temp of 96.8, blood pressure 97/59, saturating well on room air. Assessment bedside patient was sweating profusely. Denies any cough he does complain of shortness of breath and body aches. Denies any neck stiffness, no seizures no tremors, denies any abdominal pain but does complain of one episode of diarrhea. He denies any phlegm production. Patient did have a dental abscess that was treated with a root canal 2 weeks ago. He was treated for maxillary sinus infection for multiple months prior to that. Patient feels a sinus infection has cleared off. He denies any recent travel or sick contact he does have 2 young children at home are doing well with no sign of infection. Absolute didn't suggest a leukocytosis of 19, sodium of 134, CO2 20, glucose 129 increased bilirubin with normal LFTs is obtained which suggest some ketones.. No sign of infection. Later will be treated for community-acquired pneumonia with azithromycin and ceftriaxone. Lactic acid was normal 02/18: Patient had multiple episodes of diarrhea throughout the night. A stool culture for C. diff was obtained. Denies any nausea vomiting or abdominal pain. Continues to have chills, fever, body aches, and shortness of breath. Patient states has a dry cough and not coughing up any sputum. Patient states that he is not feeling any better today. White count continues to increase 21.8 today, Lactic acid was redrawn 2.8, fluids 0.9 normal saline at 100 mL per hour. 02/18 . At 10 : 30 pm , nurse called suggesting patient had a temp of 100 despite being on Tylenol. Nurse was told that the blood culture has been drawn and we dont consider a temp of 100( usually temp is 100.4 ) and patient is already receiving 3600 mg of tylenol along with motrin and increasing the dose further may cause risk to the kidney s and liver. Nurse was instructed to use ice packs along with tylenol and motrin. I was informend about the worsening SOB, dizziness at 1145 pm and that patient is requiring 4 L of oxygen as oxygen sat on 2 L was 92 % ICU staff was called due to resp distress. Nurse instructed to stop the IV fluids, give a dose of IV Lasix 20 for concern of volume overload and repeat a chest x-ray. Give patient breathing treatments t o help with SOB. Nurse was asked to place the pulmonary consult as well. Nurse was called back again to see if the patient is doing better. Family (mother ) bedside demanded transfer to [facility] and was not ready to cooperate with medication ( lasiX ) . I talked personally to the family to explain the CT finding and that the patient SOB is related to volume overload and lasix will help. Family was explained that patient is receiving treatment with IV antibiotics that are also covering Legionella which is the most possible source of pneumonia. She looked up the side effects of medication online and was not willing to cooperate and let patient received the medication. Patient refused administration of IV Lasix or repeat chest x-ray. Patient oxygen requirement was increased to 7 L to maintain saturation of 94%. Family's wishes were acknowledged and [facility] transfer team was called at 1 AM on 02/19 to facilitate the transfer . After reviewing the document the next day, it was noted that the patient also had a temp of 101 during the past night not mentioned in the above conversation. Discharge diagnosis #1 acute sepsis secondary to multifocal pneumonia secondary to Legionella #2 history of asthma #3 pleural and pericardial effusion secondary to infection CC a copy to Dr. Wood Patient Condition at Discharge: Undetermined Plan - Discharge Summary Discharge Rx Participant: Yes New Discharge Prescriptions: No Action Ibuprofen [Motrin Ib] 600 mg PO Q6H PRN PRN Reason: Fever And/ Or Pain Acetaminophen [Tylenol] 650 mg PO Q6H PRN PRN Reason: Fever And/ Or Pain Discharge Medication List Acetaminophen [Tylenol] 650 mg PO Q6H PRN 02/15/18 [History] Ibuprofen [Motrin Ib] 600 mg PO Q6H PRN 02/15/18 [History] Follow up Appointment(s)/Referral(s): Sindy White MD [Primary Care Provider] - 1-2 days Discharge Disposition: HOME SELF-CARE
== END 2018-02-19 01:55 | disposition short-term general hospital (02) | DRG 871 ==
LOC: EC 17:52 → 4MS4W 19:53
PROVIDERS: ADMIT Family Medicine; ATTEND Family Medicine
DX: A41.89 Other specified sepsis (principal); A48.1 Legionnaires' disease; I31.3 Pericardial effusion (noninflammatory); E87.70 Fluid overload, unspecified; F17.210 Nicotine dependence, cigarettes, uncomplicated; J32.0 Chronic maxillary sinusitis; J45.909 Unspecified asthma, uncomplicated; Z79.1 Long term (current) use of non-steroidal anti-inflammatories (NSAID); Z88.8 Allergy status to other drugs, medicaments and biological substances; R73.9 Hyperglycemia, unspecified; R19.7 Diarrhea, unspecified
CPT/HCPCS: 36415; 71046; 71250; 80048; 80053; 81001; 82272; 83036; 83605; 83630; 85025; 86738; 87040; 87045; 87046; 87324; 87449; 94640; 94760; 96361; 96374; 99284

== ENCOUNTER 2024-01-14 21:47 | Emergency (ER) | payer OTHER ==
--- NOTE | 2024-01-14 22:00 | ED ---
Fever HPI - General Chief Complaint: ENT Stated Complaint: Fever Time Seen by Provider: 01/14/24 21:58 Source: patient, RN notes reviewed, old records reviewed Mode of arrival: ambulatory Limitations: no limitations - History of Present Illness Initial Comments: This is a 38-year-old male who presents with fever today fever not feeling well. Patient has no significant medical history takes no medications no cough or congestion no rash no nausea vomiting diarrhea no other complaints MD Complaint: fever, other (0) -: days(s) Temperature Source: subjective Context: sick contacts, multiple patients with similar symptoms Associated Symptoms: chills, myalgias Treatments Prior to Arrival: none - Related Data Home Medications Medication Instructions Recorded Confirmed Acetaminophen [Tylenol] 650 mg PO Q6H PRN 02/15/18 02/16/18 Ibuprofen [Motrin Ib] 600 mg PO Q6H PRN 02/15/18 02/16/18 Allergies Allergy/AdvReac Type Severity Reaction Status Date / Time carbinoxamine [From Ronde] Allergy Unknown Verified 01/14/24 21:55 Childhood pseudoephedrine [From Ronde] Allergy Unknown Verified 01/14/24 21:55 Childhood Review of Systems ROS Statement: Those systems with pertinent positive or pertinent negative responses have been documented in the HPI. ROS Other: All systems not noted in ROS Statement are negative. Past Medical History Past Medical History: Asthma, Pneumonia Additional Past Medical History / Comment(s): asthma as child, upper bridge History of Any Multi-Drug Resistant Organisms: None Reported Past Surgical History: Tonsillectomy Past Anesthesia/Blood Transfusion Reactions: No Reported Reaction Past Psychological History: No Psychological Hx Reported Smoking Status: Former smoker Past Alcohol Use History: Occasional Past Drug Use History: None Reported - Past Family History Mother Additional Family Medical History / Comment(s): brain aneurysm Father Family Medical History: No Reported History General Exam Limitations: no limitations General appearance: alert, in no apparent distress, anxious Head exam: Present: atraumatic, normocephalic, normal inspection Eye exam: Present: normal appearance, PERRL, EOMI. Absent: scleral icterus, conjunctival injection, periorbital swelling ENT exam: Present: normal exam, mucous membranes moist Neck exam: Present: normal inspection. Absent: tenderness, meningismus, lymphadenopathy Respiratory exam: Present: normal lung sounds bilaterally. Absent: respiratory distress, wheezes, rales, rhonchi, stridor Cardiovascular Exam: Present: regular rate, normal rhythm, normal heart sounds. Absent: systolic murmur, diastolic murmur, rubs, gallop, clicks GI/Abdominal exam: Present: soft, normal bowel sounds. Absent: distended, tenderness, guarding, rebound, rigid Extremities exam: Present: normal inspection, full ROM, normal capillary refill. Absent: tenderness, pedal edema, joint swelling, calf tenderness Back exam: Present: normal inspection Neurological exam: Present: alert, oriented X3, CN II-XII intact Psychiatric exam: Present: normal affect, normal mood Skin exam: Present: warm, dry, intact, normal color. Absent: rash Course Vital Signs 01/14/24 01/15/24 21:53 01:36 Temperature 99.7 F H 98.7 F Pulse Rate 91 80 Respiratory 18 16 Rate Blood Pressure 126/84 128/88 O2 Sat by Pulse 97 98 Oximetry - Reevaluation(s) Reevaluation #1: Records reviewed Reevaluation #2: Patient symptoms improved Reevaluation #3: Patient informed of results and questions answered Reevaluation #4: Was pt. sent in by a medical professional or institution (, PA, CLOUD SECURITY ARCHITECT, urgent care, hospital, or usp...) When possible be specific @ -no Did you speak to anyone other than the patient for history (EMS, parent, family, police, friend...)? What history was obtained from this source @ -no Did you review nursing and triage notes (agree or disagree)? Why? @ -agree Are old charts reviewed (outside hosp., previous admission, EMS record, old EKG, old radiological studies, urgent care reports/EKG's, usp records)? Report findings @ -yes Differential Diagnosis (chest pain, altered mental status, abdominal pain women, abdominal pain men, vaginal bleeding, weakness, fever, dyspnea, syncope, headache, dizziness, GI bleed, back pain, seizure, CVA, palpatations, mental health, musculoskeletal)? @ -prior EKG interpreted by me (3pts min.). @ -no X-rays interpreted by me (1pt min.). @ -yes negative for acute disease CT interpreted by me (1pt min.). @ -no U/S interpreted by me (1pt. min.). @ -no What testing was considered but not performed or refused? (CT, X-rays, U/S, labs )? Why? @ -none What meds were considered but not given or refused? Why? @ -none Did you discuss the management of the patient with other professionals (professionals i.e. , PA, CLOUD SECURITY ARCHITECT, lab, RT, psych nurse, social sciences chair, upper lining cementer, teacher, ammunition officer, mattress spring encaser)? Give summary @ -no Was smoking cessation discussed for >3mins.? @ -no Was critical care preformed (if so, how long)? @ -no Were there social determinants of health that impacted care today? How? (Homelessness, low income, unemployed, alcoholism, drug addiction, transportation, low edu. Level, literacy, decrease access to med. care, long-term, rehab)? @ -none Was there de-escalation of care discussed even if they declined (Discuss DNR or withdrawal of care, Hospice)? DNR status @ -no What co-morbidities impacted this encounter? (DM, HTN, Smoking, COPD, CAD, Cancer, CVA, ARF, Chemo, Hep., AIDS, mental health diagnosis, sleep apnea, morbid obesity)? @ -none Was patient admitted / discharged? Hospital course, mention meds given and route, prescriptions, significant lab abnormalities, going to OR and other pertinent info. @ - 38 male to ER presents with fever today. Negative x-ray negative viral testing patient can be discharged home Discharge Undiagnosed new problem with uncertain prognosis? @ -no Drug Therapy requiring intensive monitoring for toxicity (Heparin, Nitro, Insulin, Cardizem)? @ -no Were any procedures done? @ -no Diagnosis/symptom? @ -Fever Acute, or Chronic, or Acute on Chronic? @ -Acute Uncomplicated (without systemic symptoms) or Complicated (systemic symptoms)? @ -Complicated Side effects of treatment? @ -no Exacerbation, Progression, or Severe Exacerbation? @ -exacerbation Poses a threat to life or bodily function? How? (Chest pain, USA, OR, pneumonia, PE, COPD, DKA, ARF, appy, cholecystitis, CVA, Diverticulitis, Homicidal, Suicidal, threat to staff... and all critical care pts) @ -yes fever Reevaluation #5: Differential Fever: Pneumonia, viral URI, endocarditis, myocarditis, pericarditis, otitis, sinusitis, peritonsillar Abscess, retropharyngeal Abscess, epiglottitis, peritonitis, appendicitis, Celena cystitis, diverticulitis, hepatitis, colitis, UTI, PID, TOA, pyelonephritis, prostatitis, epididymitis, meningitis, encephalitis, pulmonary embolism, CVA, thyroid storm, pancreatitis, adrenal crisis, cavernous sinus thrombosis, this is not meant to be an all-inclusive list. Medical Decision Making - Medical Decision Making 38 male to ER presents with fever today. Negative x-ray negative viral testing patient can be discharged home - Lab Data Lab Results 01/14/24 01/14/24 Range/Units 22:27 22:27 Influenza Type A (PCR) Not Detected (Not Detectd) Influenza Type B (PCR) Not Detected (Not Detectd) RSV (PCR) Not Detected (Not Detectd) SARS-CoV-2 (PCR) Not Detected (Not Detectd) Group A Strep (PCR) NOT DETECTED (Not Detectd) - Radiology Data Radiology results: report reviewed (Chest x-ray is negative for acute disease), image reviewed Disposition Clinical Impression: Fever Disposition: HOME SELF-CARE Condition: Good Instructions (If sedation given, give patient instructions): Fever in Adults (ED) Is patient prescribed a controlled substance at d/c from ED?: No Referrals: Sindy White MD [Primary Care Provider] - 1-2 days Time of Disposition: 01:10
[2024-01-14] MEDS: ACETAMINOPHEN TAB 500 MG TAB PO STA (22:43)
[2024-01-14] MEDS: IBUPROFEN 800 MG TAB PO STA (22:43)
[2024-01-15 01:45] VITALS: BP 128/88; PULSE 80; RESP 16; TEMP 98.7
== END 2024-01-15 01:36 | disposition home or self-care (01) ==
LOC: EC 21:47
DX: R50.9 Fever, unspecified (principal); Z88.8 Allergy status to other drugs, medicaments and biological substances; Z87.891 Personal history of nicotine dependence
CPT/HCPCS: 71045; 87636; 87651; 99284